=== PATIENT | male | born 1965 | race African-American/Black ===

== ENCOUNTER → 2018-11-27 | Outpatient (CLI) | payer BC | LOC: M.MRI 11-21 11:08 → M.ULTRA 09:30 | DX: G31.9 Degenerative disease of nervous system, unspecified (principal); G93.89 Other specified disorders of brain; G45.9 Transient cerebral ischemic attack, unspecified; R41.3 Other amnesia; R47.9 Unspecified speech disturbances ==

== ENCOUNTER → 2020-10-04 | Outpatient (CLI) | payer BC | LOC: M.ULTRA 15:31 | PROVIDERS: ATTEND Family Medicine | DX: M76.62 Achilles tendinitis, left leg (principal) ==